=== PATIENT | male | born 1955 | race Caucasian/White ===

== ENCOUNTER 2017-03-13 09:15 | Outpatient (CLI) | payer OTHER ==
--- NOTE | 2017-03-13 10:13 | DIAGNOSTIC IMAGING REPORT ---
PROCEDURE: CT LOW-DOSE LUNG CA SCREENING CLINICAL INDICATION: LUNG CA SCREENING TECHNIQUE: Low-dose helical CT images of the lungs without contrast were obtained and reconstructed at 2.5 mm intervals. MIP reformations in coronal and sagittal planes were created. Radiation dose 1.38 mGy. COMPARISON: Oldest available comparison: None FINDINGS: NODULES: Location: Peripheral left lower lobe; image location: 97; size: 3 mm; composition: Non solid OTHER LUNG FINDINGS: Mild lingular scarring. Thickening of the minor fissure. AIRWAY: Branches normally without narrowing or endobronchial nodule. PLEURA: No effusions, thickening, or pneumothorax. AORTA AND GREAT VESSELS: Normal caliber, minor atherosclerotic calcification. Coronary atherosclerosis. PULMONARY ARTERIES: Normal. . HEART AND PERICARDIUM: Normal size without effusion, thickening. LYMPH NODES: No enlarged nodes visible. THORACIC SPINE: No suspicious lesion. Mild degenerative changes. CHEST WALL: Normal. VISUALIZED UPPER ABDOMEN: Normal. IMPRESSION: 1. 3 mm peripheral left lower lobe nodule, likely postinflammatory. 2. Category 2. Recommend annual screening with LDCT in 12 months. 3. Lingular scarring 4. Coronary atherosclerosis All CT scans at this facility use dose modulation, iterative reconstruction, and/or weight-based dosing when appropriate to reduce radiation dose to as low as reasonably achievable.
== END 2017-03-13 23:00 ==
LOC: RT SRH 09:15
DX: R91.1 Solitary pulmonary nodule (principal); R91.8 Other nonspecific abnormal finding of lung field

== ENCOUNTER 2017-04-14 01:45 | Emergency (ER) | payer OTHER ==
--- NOTE | 2017-04-14 02:58 | ED NURSING NOTES ---
Clinical Report - Nurses [facility] [address] [place] [address] 04/14/2017 1:47 Patient: SHANTELLE MANRIQUEZ TRIAGE Triage time 01:50. Acuity: LEVEL 2. Chief Complaint: SHORTNESS OF BREATH and WHEEZING. --02:02 Clarissa Valiente R.N. 01:50 04/14/17. BP: 125/79 taken on the left arm, while lying. HR: 71 (irregular and normal rate). RR: 18. O2 saturation: 94% on nasal cannula at 3 liters/minute. Temp: 97.9 F (oral). Pain level now: 0/10. --02:02 Clairssa Valiente R.N. Weight: 112.9 kg stated. Height/Length: 69 inches Per Patient. BMI: 36.8. --02:01 Clarissa Valiente R.N. Medications Albuterol Sulfate HFA Inhalation 2 puffs, as needed. --01:58 Clarissa Valiente R.N. Aspirin Oral (Tablet Chewable 81 mg) 1 tablet. --02:45 Clarissa Valiente R.N. Digoxin Oral (Tablet 250 mcg) 1 tablet, daily. --02:46 Clarissa Valiente R.N. Cartia XT Oral 120 mg, daily. --02:46 Clarissa Valiente R.N. Carvedilol Oral (Tablet 25 mg) 1 tablet, bid. --02:47 Clarissa Valiente R.N. Spironolactone Oral (Tablet 25 mg) 1 tablet, daily. --02:47 Clarissa Valiente R.N. Cozaar Oral 25 mg, daily. --02:47 Clarissa Valiente R.N. Allergies No Known Drug Allergy. --01:59 Clarissa Valiente R.N. History Arrived by EMS. Historian: patient. Unaccompanied. Primary physician (akin). This started just prior to arrival. ( pt c/o shortness of breath started around 0045 tonight, possible COPD being tested for. audible wheezing and tripoding). Treatment PROGRAM PARAPROFESSIONAL: Took breathing treatment x2. Symptoms improved after treatment. (125mg solumedrol by EMS). PAST MEDICAL HX: Immunizations: up-to-date. SOCIAL HX: Light tobacco smoker (cigarette)- less than 1/2 a pack per day. History of occasional drug use: marijuana. No alcohol use. No infectious disease exposure. ABUSE ASSESSMENT: No report of abuse. SELF HARM ASSESSMENT: A self harm assessment was performed. The patient answered "no" to the question "Have you recently felt down, depressed, or hopeless?", "Have you noticed less interest or pleasure in doing things?", "Do you have thoughts of harming or killing yourself?", "Are you here because you tried to hurt yourself?", "Have you ever tried to hurt yourself before today?", "Have you recently had thoughts about harming or killing others?" and "Do you have any dangerous items in your possession?". --02:02 Clarissa Valiente R.N. PROBLEMS: COPD - Chronic Obstructive Pulmonary Disease. --02:00 Clarissa Valiente R.N. Atrial Fibrillation. --02:00 Clarissa Valiente R.N. Hypertension. --02:48 Clarissa Valiente R.N. ADDITIONAL SURGERIES: Shoulder Surgery. --02:48 Clarissa Valiente R.N. Interventions ID band on patient. --02:02 Clarissa Valiente R.N. PHYSICAL ASSESSMENT To room via stretcher. GENERAL / NEURO / PSYCH: Alert. Oriented X 4. Appears in no acute distress. HEENT: Mucous membranes are pink. RESPIRATORY: Mild respiratory distress. Respirations not labored. The patient can speak in full sentences. Expiratory and inspiratory wheezes present; wheezes audible without auscultation. CVS: Cardiac rhythm: atrial fibrillation. Capillary refill less than 2 seconds. GI / : Abdomen soft and nontender. Bowel sounds within normal limits. SKIN: Skin is warm and dry. Normal skin turgor. --02:05 Clarissa Valiente R.N. NURSING PROGRESS NOTES 01:50 04/14/2017 Site #1 started prior to arrival by EMS via IV in the right hand with an 20g angiocath, with good blood return. --01:55 Clarissa Valiente R.N. 01:58 04/14/2017 Duoneb (Ipratropium-Albuterol) Neb TX Nebulizer 1 unit dose given. Given by the respiratory therapist. Allergies verified and confirmed 5 rights. --01:58 Barrett Qureshi, ER Catalog Library Assistant Two patient identifiers checked. Call light placed in reach. Side rails up x 2. Bed placed in lowest position. Brakes of bed on. Patient ready for evaluation- chart flagged. --02:06 Clarissa Valiente R.N. Oxygen administered by nasal cannula at 3 liters. supervisor pipeline, pulse oximeter and NIBP monitor placed on patient; employment evaluator/case manager- Lead II; monitor alarms on. Reassurance given. --02:06 Clarissa Valiente R.N. Portable chest x-ray performed. The patient is resting quietly. Overall patient status is improved- he states feels better. RESPIRATORY: Bilateral wheezes anteriorly and posteriorly; wheezes audible without auscultation (improving). SKIN: Skin is warm and dry. Skin color within normal limits. --02:25 Clarissa Valiente R.N. Two patient identifiers checked. Call light placed in reach. Side rails up x 2. Bed placed in lowest position. Brakes of bed on. --02:26 Clarissa Valiente R.N. 02:02 04/14/2017 Duoneb Neb TX discontinued due to improvement in patient condition. --02:34 Clarissa Valiente R.N. 02:15 04/14/2017 Albuterol Neb TX Nebulizer 5 mg given. Given by the respiratory therapist. Allergies verified and confirmed 5 rights. --02:24 Clarissa Valiente R.N. 02:20 04/14/2017 Albuterol Neb TX discontinued due to improvement in patient condition. --02:35 Clarissa Valiente R.N. 02:48 04/14/17. BP: 103/69 taken on the left arm, while lying. HR: 78 (regular and normal rate). RR: 18 (regular and unlabored). O2 saturation: 94% on nasal cannula at 3 liters/minute. Temp: deferred. Pain level now: 0/10. --02:49 Clarissa Valiente R.N. The patient is calm and resting quietly. Overall patient status is improved- he states feels better. RESPIRATORY: No respiratory distress. Breath sounds normal. SKIN: Skin is warm and dry. Skin color within normal limits. --02:49 Clarissa Valiente R.N. 03:00 04/14/2017 Augmentin (Amoxicillin-Pot Clavulanate) PO Tablets 875 mg given. Allergies verified and confirmed 5 rights. --03:05 Clarissa Valiente R.N. 03:00 04/14/2017 IV Saline Lock Drip IV Discontinued: upon discharge. IV patency established. IV site checked: no pain, redness, or swelling. IV flushed thoroughly. --03:05 Clarissa Valiente R.N. 03:02 04/14/2017 Site #1 removed upon discharge. Catheter intact. Manual pressure and bandage applied. --03:06 Clarissa Valiente R.N. DISPOSITION / DISCHARGE Departure time: 0302. Condition at departure: improved and stable. No learning barriers present. Discharge instructions provided and reviewed with the patient. Reviewed medication(s) side effects, precautions, dosing and course information. Prescription(s) given to the patient. Reviewed referral to a primary care physician. Patient and spouse verbalized understanding. Written instructions provided in Persian. The patient was discharged home and accompanied by spouse. He left the Emergency Department ambulatory and via private vehicle. Spouse driving. --03:08 Clarissa Valiente R.N. 03:02 04/14/17. BP: 103/91 taken on the left arm, while lying. HR: 88 (regular). RR: 18 (regular and unlabored). O2 saturation: 92% on room air. Temp: deferred. Pain level now: 0/10. --03:08 Clarissa Valiente R.N. Locked/Released at 04/14/2017 3:08 by Clarissa Valiente R.N.
--- NOTE | 2017-04-14 02:58 | ED CLINICAL REPORT ---
Clinical Report - Physicians/Mid Levels [facility] [address] [place] [address] 04/14/2017 1:47 Patient: SHANTELLE MANRIQUEZ Time Seen: 0149. Arrived- By ambulance. Historian- patient. HISTORY OF PRESENT ILLNESS Chief Complaint: WHEEZING. This started today and is still present. It was abrupt in onset and has been constant but is not gone now. The dyspnea is described as severe. He has had dyspnea at rest. The patient has had sputum production and a cough. No orthopnea or chest pain or discomfort. Asthma triggers: unknown. Takes asthma medications (inhaled albuterol), recently prescribed. (states it happened right after using his albuterol inhaler. no hemoptysis, recent surgery/trauma, prolonged immobilization). Similar symptoms previously: None. Recent medical care: Not recently seen/assessed. REVIEW OF SYSTEMS No fever, chills or skin rash. All systems otherwise negative, except as recorded above. PAST HISTORY See nurses notes. Pulmonary embolism/DVT risk factors: Has not had recent surgery, recent NV or multiple pulmonary emboli. No history of cancer, DVT or pulmonary embolism or umbrella filter. Not taking estrogens. Does not have advanced age as a risk factor or immobility as a risk factor. Is not obese. SOCIAL HISTORY Smoker- current status unknown. History of occasional drug use: marijuana. No alcohol use. No recent travel. Is a local resident. ADDITIONAL NOTES The nursing notes have been reviewed. PHYSICAL EXAM Vital Signs: 04/14/2017 01:50 BP: 125/79. HR: 71. RR: 18. O2 saturation: 94%. Temp: 97.9 F. Pain level now: 0/10. Blood pressure normal. Oxygen saturation normal. Appearance: Alert. Patient in mild distress. Eyes: Pupils equal, round and reactive to light. Eyes normal inspection. ENT: Ears normal. Nose normal. Pharynx normal. Uvula midline. Neck: Normal inspection. Neck supple. CVS: Normal heart rate and rhythm. Heart sounds normal. Pulses normal. Respiratory: Respiratory distress. Expiratory moderate bilateral wheezes diffusely. No stridor or rales. Abdomen: Soft and nontender. No organomegaly. Skin: Skin warm and dry. Normal skin color. No rash. Normal skin turgor. Extremities: Extremities exhibit normal ROM. No lower extremity edema. No calf tenderness. No lower extremity edema. Neuro: Oriented X 3. No motor deficit. No sensory deficit. LABS, X-RAYS, AND EKG EKG: No acute ischemia. Atrial fibrillation (narrow-complex) (95). Normal QRS complex. Normal axis. Normal ST and T waves, QT and QTc. rate controlled a fib. The study has been interpreted contemporaneously. The study has been independently viewed by me. Artifact present. Chest X-ray: No acute disease. Normal lung markings present. Normal heart size. Mediastinum normal. Great vessels normal. No infiltrate. Views: AP (portable). The X-rays were independently viewed by me and interpreted contemporaneously by me. Laboratory Tests: CBC w Diff: (MARCELINA: 04/14/2017 01:52) ( [facility] [place] 02:12) Final results Test Result Flag Units (Reference) WHITE BLOOD COUNT 11.6 H K/uL (4.5-11.5) RED BLOOD COUNT 5.06 M/uL (4.50-5.90) HEMOGLOBIN 14.6 gm/dL (13.5-17.5) HEMATOCRIT 44.4 % (41.0-53.0) MEAN CELL VOLUME 88 fL (80-100) MEAN CORPUSCULAR HGB 29 pg (26-34) MEAN CORPUSCULAR HGB CONC 33 g/dL (31-37) RED CELL DISTRIBUTION WIDTH 13.5 % (11.6-14.8) PLATELET COUNT 253 K/uL (150-400) NEUTROPHIL % 47.7 L % (50-75) LYMPH % 37.2 % (25-40) MONO % 9.2 % (3-14) EOSINOPHIL % 4.4 H % (0-4) BASOPHIL % 1.5 % (0-2) CMP: (MARCELINA: 04/14/2017 01:52) ( [facility] [place] 04/14/2017 02:21) Final results Test Result Flag Units (Reference) GLUCOSE 174 H mg/dL (70-110) BUN 23 H mg/dL (7-18) CREATININE 0.8 mg/dL (0.6-1.3) Estimated GFR >60 mL/min Estimated GFR- >60 mL/min Note: Persistent reduction over 3 months in eGFR<60 mL/min/1.73 m2 defines CKD. Patients with eGFR values>=60 mL/min/1.73 m2 may also have CKD if evidence ofpersistent proteinuria. Additional information may be foundat www.kidney.org. SODIUM 140 mmol/L (136-145) POTASSIUM 4.5 mmol/L (3.5-5.1) CHLORIDE 104 mmol/L (98-107) CARBON DIOXIDE 27 mmol/L (21-32) CALCIUM 9.3 mg/dL (8.5-10.1) TOTAL PROTEIN 7.3 g/dL (6.4-8.2) ALBUMIN 3.5 g/dL (3.3-5.0) BILIRUBIN, TOTAL 0.4 mg/dL (0.0-1.0) ALKALINE PHOSPHATASE 69 U/L (46-116) AST (SGOT) 12 L U/L (15-37) ALT (SGPT) 24 U/L (12-78) . PROGRESS AND PROCEDURES Course of Care: the patient is a 62-year-old male with past medical history significant for smoking presenting for evaluation of shortness of breath and wheezing. On examination, patient is in a mild amount of distress. Patient has significant wheezing on examination. Rested her therapy has been paged. Patient will be evaluated with respiratory therapy and provided breathing treatment. EKG and chest x-ray possibly ordered for evaluation patient's shortness of breath. Because the patient's wheezing on examination, feel that the symptoms are likelybecause of a COPD type exacerbation. Patient not formally diagnosed with COPD however because of long smoking history, and concerned about this entity. Would also be concerned for bronchitis and bronchospasm if the patient has not been diagnosed with COPD. Patient is agreeable to the treatment and plan. the patient's work up was a markable for the findings above. No acute abnormalities noted on patient EKG and chest x-ray. Because the patient has improved with the breathing treatments as expected from a bronchospasm type of event, did not feel symptoms are due to acute myocardial infarction or pulmonary embolism. Chest x-ray is also clear. Patient likely with bronchitis given his symptoms of cough and productive white sputum. He was given several breathing treatments in the emergency department and after each time improving significantly. When the patient first presented to the emergency department he rated his discomfort at a 10. Palpation states that he is a 0. Lungs with only intermittent wheezing on examination now. Patient offered to be monitored further in thnt states that he feels like he is well enough and would like to go home. As the patient's significant improvement of symptoms, is now a symptomatically, and now having only intermittent wheezing on exam, feel patient is a stable outpatient candidate. Had discussion with the patient in regards to his workup here in the emergency department including diagnosis, home care, follow-up, and return precautions. All questions have been answered. The patient expressed understanding of these instructions and was agreeable to them. Because the patient's likely COPD steroids and antibiotics provided to shorten the duration and severity of the patient's symptoms. Tamiflu is also not recommended because ofrisks outweighing benefits. Disposition: Discharged. Condition: good. CLINICAL IMPRESSION 04/14/2017 02:48 BP: 103/69. HR: 78. RR: 18. O2 saturation: 94%. Pain level now: 0/10. Blood pressure normal. Oxygen saturation normal. Acute bronchospasm (acute). Acute bacterial bronchitis. INSTRUCTIONS Warnings: GENERAL WARNINGS: Return or contact your physician immediately if your condition worsens or changes unexpectedly, if not improving as expected, or if other problems arise. Specifically return if pain, vomiting, bleeding, breathing difficulty or fever. Your Current Medications: CONTINUE TAKING THE FOLLOWING MEDICATIONS: Albuterol Sulfate HFA Inhalation : 2 puffs, prn. Aspirin Oral : Tablet Chewable 81 mg, 1 tablet. Cartia XT Oral : 120 mg daily. Carvedilol Oral : Tablet 25 mg, 1 tablet bid. Cozaar Oral : 25 mg daily. Digoxin Oral : Tablet 250 mcg, 1 tablet daily. Spironolactone Oral : Tablet 25 mg, 1 tablet daily. Prescription Medications: Albuterol HFA oral inhaler: inhale 1-2 puffs via spacer every 4 hours as needed for wheezing, difficulty breathing or shortness of breath. Dispense one (1) unit. No refill. Augmentin 875 mg: take 1 tablet orally every 12 hours for 10 days. No refill. Substitution is permissible. (disp 20 tabs) Prednisone 50 mg: take 1 orally every day for 5 days. Dispense five (5). No refills. Follow-up: Return to the emergency department as needed. Follow up with your doctor in three days. Reason for referral: recheck today's concerns. Summary of care provided to patient via paper. Screening today revealed the patient's blood pressure to be in the normal range. The patient should follow up with a primary care provider for blood pressure management. Understanding of the discharge instructions verbalized by patient. (Electronically signed by Ac Adair Dr. 04/15/2017 17:31)
--- NOTE | 2017-04-14 02:58 | ED ORDER SUMMARY ---
..... Patient: SHANTELLE MANRIQUEZ OrderSheet [facility] VisitID: [id number] [place] [address] 62y, M Registration Date/Time: 04/14/2017 ORDER SHEET Weight: 112.9 kg (stated) Allergies: No Known Drug Allergy GENERAL ORDERS: EKG - ER Stat (01:54 04/14/2017 Cesilia R.NHema per protocol) (1:58 [facility] ER Customer Acquisition Manager) Chest 1V Urgent (02:04/14/2017 Diamante Martinez) (Ack 2:07 [facility]ague ER Customer Acquisition Manager) (2:24 Cesilia R.N.) Medical Laboratory Technical Officer (Continuous) (Respiratory Distress) (02:04/14/2017 Diamante Martinez) (2:06 Cesilia R.N.) CBC w Diff Urgent (02:04/14/2017 Diamante Martinez) (2:06 Cesilia R.N.) CMP Urgent (02:04/14/2017 Diamante Martinez) (2:06 Cesilia R.N.) Pulse oximeter (02:04/14/2017 Diamante Martinez) (2:06 Cesilia R.N.) MEDICATION ORDERS: DuoNeb Neb Tx 1 unit dose (NOW) (01:04/14/2017 Cesilia R.NHema per protocol) (1:58 [facility] ER Customer Acquisition Manager) DuoNeb Neb Tx 1 unit dose (back log for just after arrival) (02:04/14/2017 Diamante Martinez) (Cancelled: Duplicate Order2:34 Cesilia R.N.) Albuterol Neb Tx 5 mg (once now) (02:05 04/14/2017 Diamante Martinez) (2:24 Cesilia R.N.) Augmentin PO 875 mg (NOW) (02:54 04/14/2017 Diamante Martinez) (Ack 2:56 Cesilia R.N.) (3:05 Cesilia R.N.) IV FLUIDS: Solu-MEDROL IV 125 mg (NOW) (02:05 04/14/2017 Diamante Martinez) (Cancelled: Duplicate Order2:17 Diamante Martinez) IV Saline Lock (02:06 04/14/2017 Diamante Martinez) (2:07 Cesilia Gallo) ORDER SHEET NOTES: [Electronically signed by Clarissa Valiente R.N. (03:08 04/14/2017)] [Electronically signed by Ac Adair Dr. (17:31 04/15/2017)] [Electronically locked/signed by Clarissa Valiente R.N. (03:08 04/14/2017)]
--- NOTE | 2017-04-14 02:58 | ED NURSING NOTES ---
Clinical Report - Nurses [facility] [address] [place] [address] 04/14/2017 1:47 Patient: SHANTELLE MANRIQUEZ TRIAGE Triage time 01:50. Acuity: LEVEL 2. Chief Complaint: SHORTNESS OF BREATH and WHEEZING. --02:02 Clarissa Valiente R.N. 01:50 04/14/17. BP: 125/79 taken on the left arm, while lying. HR: 71 (irregular and normal rate). RR: 18. O2 saturation: 94% on nasal cannula at 3 liters/minute. Temp: 97.9 F (oral). Pain level now: 0/10. --02:02 Clarissa Valiente R.N. Weight: 112.9 kg stated. Height/Length: 69 inches Per Patient. BMI: 36.8. --02:01 Clarissa Valiente R.N. Medications Albuterol Sulfate HFA Inhalation 2 puffs, as needed. --01:58 Clarissa Valiente R.N. Aspirin Oral (Tablet Chewable 81 mg) 1 tablet. --02:45 Clarissa Valiente R.N. Digoxin Oral (Tablet 250 mcg) 1 tablet, daily. --02:46 Clarissa Valiente R.N. Cartia XT Oral 120 mg, daily. --02:46 Clarissa Valiente R.N. Carvedilol Oral (Tablet 25 mg) 1 tablet, bid. --02:47 Clarissa Valiente R.N. Spironolactone Oral (Tablet 25 mg) 1 tablet, daily. --02:47 Clarissa Valiente R.N. Cozaar Oral 25 mg, daily. --02:47 Clarissa Valiente R.N. Allergies No Known Drug Allergy. --01:59 Clarissa Valiente R.N. History Arrived by EMS. Historian: patient. Unaccompanied. Primary physician ([facility]). This started just prior to arrival. ( pt c/o shortness of breath started around 0045 tonight, possible COPD being tested for. audible wheezing and tripoding). 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 Symptoms improved after treatment. (125mg solumedrol by EMS). PAST MEDICAL HX: Immunizations: up-to-date. SOCIAL HX: Light tobacco smoker (cigarette)- less than 1/2 a pack per day. History of occasional drug use: marijuana. No alcohol use. No infectious disease exposure. ABUSE ASSESSMENT: No report of abuse. SELF HARM ASSESSMENT: A self harm assessment was performed. The patient answered "no" to the question "Have you recently felt down, depressed, or hopeless?", "Have you noticed less interest or pleasure in doing things?", "Do you have thoughts of harming or killing yourself?", "Are you here because you tried to hurt yourself?", "Have you ever tried to hurt yourself before today?", "Have you recently had thoughts about harming or killing others?" and "Do you have any dangerous items in your possession?". --02:02 Clarissa Valiente R.N. PROBLEMS: COPD - Chronic Obstructive Pulmonary Disease. --02:00 Clarissa Valiente R.N. Atrial Fibrillation. --02:00 Clarissa Valiente R.N. Hypertension. --02:48 Clarissa Valiente R.N. ADDITIONAL SURGERIES: Shoulder Surgery. --02:48 Clarissa Valiente R.N. Interventions ID band on patient. --02:02 Clarissa Valiente R.N. PHYSICAL ASSESSMENT To room via stretcher. GENERAL / NEURO / PSYCH: Alert. Oriented X 4. Appears in no acute distress. HEENT: Mucous membranes are pink. RESPIRATORY: Mild respiratory distress. Respirations not labored. The patient can speak in full sentences. Expiratory and inspiratory wheezes present; wheezes audible without auscultation. CVS: Cardiac rhythm: atrial fibrillation. Capillary refill less than 2 seconds. GI / : Abdomen soft and nontender. Bowel sounds within normal limits. SKIN: Skin is warm and dry. Normal skin turgor. --02:05 Clarissa Valiente R.N. NURSING PROGRESS NOTES 01:50 04/14/2017 Site #1 started prior to arrival by EMS via IV in the right hand with an 20g angiocath, with good blood return. --01:55 Clarissa Valiente R.N. 01:58 04/14/2017 Duoneb (Ipratropium-Albuterol) Neb TX Nebulizer 1 unit dose given. Given by the respiratory therapist. Allergies verified and confirmed 5 rights. --01:58 Barrett Qureshi, ER Mirror Installer Two patient identifiers checked. Call light placed in reach. Side rails up x 2. Bed placed in lowest position. Brakes of bed on. Patient ready for evaluation- chart flagged. --02:06 Clarissa Valiente R.N. Oxygen administered by nasal cannula at 3 liters. satellite project site monitor, pulse oximeter and NIBP monitor placed on patient; monitoring engineer- Lead II; monitor alarms on. Reassurance given. --02:06 Clarissa Valiente R.N. Portable chest x-ray performed. The patient is resting quietly. Overall patient status is improved- he states feels better. RESPIRATORY: Bilateral wheezes anteriorly and posteriorly; wheezes audible without auscultation (improving). SKIN: Skin is warm and dry. Skin color within normal limits. --02:25 Clarissa Valiente R.N. Two patient identifiers checked. Call light placed in reach. Side rails up x 2. Bed placed in lowest position. Brakes of bed on. --02:26 Clarissa Valiente R.N. 02:02 04/14/2017 Duoneb Neb TX discontinued due to improvement in patient condition. --02:34 Clarissa Valiente R.N. 02:15 04/14/2017 Albuterol Neb TX Nebulizer 5 mg given. Given by the respiratory therapist. Allergies verified and confirmed 5 rights. --02:24 Clarissa Valiente R.N. 02:20 04/14/2017 Albuterol Neb TX discontinued due to improvement in patient condition. --02:35 Clarissa Valiente R.N. 02:48 04/14/17. BP: 103/69 taken on the left arm, while lying. HR: 78 (regular and normal rate). RR: 18 (regular and unlabored). O2 saturation: 94% on nasal cannula at 3 liters/minute. Temp: deferred. Pain level now: 0/10. --02:49 Clarissa Valiente R.N. The patient is calm and resting quietly. Overall patient status is improved- he states feels better. RESPIRATORY: No respiratory distress. Breath sounds normal. SKIN: Skin is warm and dry. Skin color within normal limits. --02:49 Clarissa Valiente R.N. 03:00 04/14/2017 Augmentin (Amoxicillin-Pot Clavulanate) PO Tablets 875 mg given. Allergies verified and confirmed 5 rights. --03:05 Clarissa Valiente R.N. 03:00 04/14/2017 IV Saline Lock Drip IV Discontinued: upon discharge. IV patency established. IV site checked: no pain, redness, or swelling. IV flushed thoroughly. --03:05 Clarissa Valiente R.N. 03:02 04/14/2017 Site #1 removed upon discharge. Catheter intact. Manual pressure and bandage applied. --03:06 Clarissa Valiente R.N. DISPOSITION / DISCHARGE Departure time: 0302. Condition at departure: improved and stable. No learning barriers present. Discharge instructions provided and reviewed with the patient. Reviewed medication(s) side effects, precautions, dosing and course information. Prescription(s) given to the patient. Reviewed referral to a primary care physician. Patient and spouse verbalized understanding. Written instructions provided in Hebrew. The patient was discharged home and accompanied by spouse. He left the Emergency Department ambulatory and via private vehicle. Spouse driving. --03:08 Clarissa Valiente R.N. 03:02 04/14/17. BP: 103/91 taken on the left arm, while lying. HR: 88 (regular). RR: 18 (regular and unlabored). O2 saturation: 92% on room air. Temp: deferred. Pain level now: 0/10. --03:08 Clarissa Valiente R.N. Locked/Released at 04/14/2017 3:08 by Clarissa Valiente R.N.
--- NOTE | 2017-04-14 02:58 | ED ORDER SUMMARY ---
..... Patient: SHANTELLE MANRIQUEZ OrderSheet [facility] VisitID: [id number] [place] [address] 62y, M Registration Date/Time: 04/14/2017 ORDER SHEET Weight: 112.9 kg (stated) Allergies: No Known Drug Allergy GENERAL ORDERS: EKG - ER Stat (01:54 04/14/2017 Cesilia R.NHema per protocol) (1:58 Mague ER Fish Hatchery Assistant) Chest 1V Urgent (02:04/14/2017 Diamante Martinez) (Ack 2:07 Mague ER Fish Hatchery Assistant) (2:24 Cesilia R.N.) Portable Irrigation Operator (Continuous) (Respiratory Distress) (02:04/14/2017 Diamante Martinez) (2:06 Cesilia R.N.) CBC w Diff Urgent (02:04/14/2017 Diamante Martinez) (2:06 Cesilia R.N.) CMP Urgent (02:04/14/2017 Diamante Martinez) (2:06 Cesilia R.N.) Pulse oximeter (02:04/14/2017 Diamante Martinez) (2:06 Cesilia R.N.) MEDICATION ORDERS: DuoNeb Neb Tx 1 unit dose (NOW) (01:04/14/2017 Cesilia R.NHema per protocol) (1:58 Mague ER Fish Hatchery Assistant) DuoNeb Neb Tx 1 unit dose (back log for just after arrival) (02:04/14/2017 Diamante Martinez) (Cancelled: Duplicate Order2:34 Cesilia R.N.) Albuterol Neb Tx 5 mg (once now) (02:05 04/14/2017 Diamante Martinez) (2:24 Cesilia R.N.) Augmentin PO 875 mg (NOW) (02:54 04/14/2017 Diamante Martinez) (Ack 2:56 Cesilia R.N.) (3:05 Cesilia R.N.) IV FLUIDS: Solu-MEDROL IV 125 mg (NOW) (02:05 04/14/2017 Diamante Martinez) (Cancelled: Duplicate Order2:17 Diamante Martinez) IV Saline Lock (02:06 04/14/2017 Diamante Martinez) (2:07 Cesilia Gallo) ORDER SHEET NOTES: [Electronically signed by Clarissa Valiente R.N. (03:08 04/14/2017)] [Electronically signed by Ac [address]air Dr. (17:31 04/15/2017)] [Electronically locked/signed by Clarissa Valiente R.N. (03:08 04/14/2017)]
--- NOTE | 2017-04-14 07:48 | DIAGNOSTIC IMAGING REPORT ---
PROCEDURE: XR CHEST 1 VIEW INDICATION: COUGH, WHEEZING TECHNIQUE: Single view chest. 02:29 hours COMPARISON: Low-dose chest CT 03/13/2017 FINDINGS: Heart size within normal limits. There is rightward shift of the trachea secondary to 3.8 cm superior mediastinal mass, probably left thyroid goiter. No central venous congestion. The aortic shadow is normal. Lungs are mildly hyperinflated and hyperlucent with slight scarring laterally at the left mid lung. A small hazy alveolar opacity at the right lung base. No effusion or pneumothorax. Intact osseous structures. IMPRESSION: 1. Questionable small right lung base alveolar opacity, potentially infectious or atelectatic change. Correlate clinically. 2. Background of COPD. 3. Rightward tracheal shift secondary to a 3.8 cm mass, likely thyroid, but incompletely evaluated on prior CT. Routine CT with contrast when the patient is able is recommended for full evaluation.
--- NOTE | 2017-04-15 17:31 | ED MED RECONCILIATION SUMMARY ---
Patient: SHANTELLE MANRIQUEZ Medication Reconciliation Report [facility] VisitID: [id number] [address] [place] [address] 62y, M Registration Date/Time: 04/14/2017 Weight: 112.9 kg Height/Length: 69 in. BMI: 36.8 ALLERGIES: No Known Drug Allergy The patient's Home Medications are listed below: CONTINUE TAKING THE FOLLOWING MEDICATIONS: Albuterol Sulfate HFA Inhalation 2 puffs Aspirin Oral (81 mg) 1 tablet Cartia XT Oral 120 mg, daily Carvedilol Oral (25 mg) 1 tablet, bid Cozaar Oral 25 mg, daily Digoxin Oral (250 mcg) 1 tablet, daily Spironolactone Oral (25 mg) 1 tablet, daily The source(s) of the original Home Medication information: Not obtained. The following Medications were given to the patient in the Emergency Department: Duoneb [Neb Tx] Neb TX 1 unit dose, administered: 04/14/2017 1:58:00 AM Albuterol [Neb Tx] Neb TX 5 mg, administered: 04/14/2017 2:15:00 AM Augmentin [PO] PO 875 mg, administered: 04/14/2017 3:00:00 AM The following Medications were prescribed to the patient: Albuterol HFA oral inhaler: inhale 1-2 puffs via spacer every 4 hours as needed for wheezing, difficulty breathing or shortness of breath. Dispense one (1) unit. No refill. -- Ac [address] Dr. Augmentin 875 mg: take 1 tablet orally every 12 hours for 10 days. No refill. Substitution is permissible.(disp 20 tabs) -- Ac [address] Dr. Prednisone 50 mg: take 1 orally every day for 5 days. Dispense five (5). No refills. -- Ac [address] Dr.
--- NOTE | 2017-04-15 17:31 | ED MED RECONCILIATION SUMMARY ---
Patient: SHANTELLE MANRIQUEZ Medication Reconciliation Report [facility] VisitID: [id number] [address] [place] [address] 62y, M Registration Date/Time: 04/14/2017 Weight: 112.9 kg Height/Length: 69 in. BMI: 36.8 ALLERGIES: No Known Drug Allergy The patient's Home Medications are listed below: CONTINUE TAKING THE FOLLOWING MEDICATIONS: Albuterol Sulfate HFA Inhalation 2 puffs Aspirin Oral (81 mg) 1 tablet Cartia XT Oral 120 mg, daily Carvedilol Oral (25 mg) 1 tablet, bid Cozaar Oral 25 mg, daily Digoxin Oral (250 mcg) 1 tablet, daily Spironolactone Oral (25 mg) 1 tablet, daily The source(s) of the original Home Medication information: Not obtained. The following Medications were given to the patient in the Emergency Department: Duoneb [Neb Tx] Neb TX 1 unit dose, administered: 04/14/2017 1:58:00 AM Albuterol [Neb Tx] Neb TX 5 mg, administered: 04/14/2017 2:15:00 AM Augmentin [PO] PO 875 mg, administered: 04/14/2017 3:00:00 AM The following Medications were prescribed to the patient: Albuterol HFA oral inhaler: inhale 1-2 puffs via spacer every 4 hours as needed for wheezing, difficulty breathing or shortness of breath. Dispense one (1) unit. No refill. -- Ac [address] Dr. Augmentin 875 mg: take 1 tablet orally every 12 hours for 10 days. No refill. Substitution is permissible.(disp 20 tabs) -- Ac [address] Dr. Prednisone 50 mg: take 1 orally every day for 5 days. Dispense five (5). No refills. -- Ac [address] Dr.
--- NOTE | 2017-04-15 17:31 | ED MAR SUMMARY ---
..... Medication Administration Record [facility] [address] [place] [address] Patient: SHANTELLE MANRIQUEZ Visit ID: [id number] 62y, M Weight: 112.9 kg Height/Length: 69 in BMI: 36.8 ALLERGIES: No Known Drug Allergy Given 01:58 04/14/2017 Barrett Qureshi, ALEJANDRO Portable Machine Sander, Stop 02:02 04/14/2017 Clarissa Valiente R.N. Medication Administered: DUONEB [NEB TX] (IPRATROPIUM-ALBUTEROL), Dose: 1 unit dose Nebulizer Neb TX. Medication Ordered: DuoNeb Neb Tx 1 unit dose (NOW). Given 02:15 04/14/2017 Clarissa Valiente R.N., Stop 02:20 04/14/2017 Clarissa Valiente R.N. Medication Administered: ALBUTEROL [NEB TX], Dose: 5 mg Nebulizer Neb TX. Medication Ordered: Albuterol Neb Tx 5 mg (once now). Given 03:00 04/14/2017 Clarissa Valiente R.N. Medication Administered: AUGMENTIN [PO] (AMOXICILLIN-POT CLAVULANATE), Dose: 875 mg Tablets PO. Medication Ordered: Augmentin PO 875 mg (NOW).
--- NOTE | 2017-04-15 17:31 | ED DISCHARGE INSTRUCTIONS ---
Patient: SHANTELLE MANRIQUEZ General Instructions [facility] VisitID: [id number] [address] [place] [address] 62y, M Registration Date/Time: 04/14/2017 04/14/2017 02:48 BP: 103/69. HR: 78. RR: 18. O2 saturation: 94%. Pain level now: 0/10. Blood pressure normal. Oxygen saturation normal. Acute bronchospasm (acute). Acute bacterial bronchitis. INSTRUCTIONS Warnings: GENERAL WARNINGS: Return or contact your physician immediately if your condition worsens or changes unexpectedly, if not improving as expected, or if other problems arise. Specifically return if pain, vomiting, bleeding, breathing difficulty or fever. Your Current Medications: CONTINUE TAKING THE FOLLOWING MEDICATIONS: Albuterol Sulfate HFA Inhalation : 2 puffs, prn. Aspirin Oral : Tablet Chewable 81 mg, 1 tablet. Cartia XT Oral : 120 mg daily. Carvedilol Oral : Tablet 25 mg, 1 tablet bid. Cozaar Oral : 25 mg daily. Digoxin Oral : Tablet 250 mcg, 1 tablet daily. Spironolactone Oral : Tablet 25 mg, 1 tablet daily. Prescription Medications: Albuterol HFA oral inhaler: inhale 1-2 puffs via spacer every 4 hours as needed for wheezing, difficulty breathing or shortness of breath. Dispense one (1) unit. No refill. Augmentin 875 mg: take 1 tablet orally every 12 hours for 10 days. No refill. Substitution is permissible. (disp 20 tabs) Prednisone 50 mg: take 1 orally every day for 5 days. Dispense five (5). No refills. Follow-up: Return to the emergency department as needed. Follow up with your doctor in three days. Reason for referral: recheck today's concerns. Summary of care provided to patient via paper. Screening today revealed the patient's blood pressure to be in the normal range. The patient should follow up with a primary care provider for blood pressure management. Understanding of the discharge instructions verbalized by patient. ADDITIONAL INFORMATION Bronchospasm (Adult) Bronchospasm occurs when the airways (bronchial tubes) go into spasm and contract. This makes it hard to breathe and causes wheezing (a high-pitched whistling sound). Bronchospasm can also cause frequent coughing without the wheezing sound. Bronchospasm is due to irritation, inflammation or allergic reaction of the airways. People with asthma get bronchospasm. However, not everyone with bronchospasm has asthma. Being exposed to harmful fumes, a recent case of bronchitis, or a flare-up of chronic emphysema (COPD) may cause the airways to spasm. An episode of bronchospasm may last 7-14 days. Medicine may be prescribed to relax the airways and prevent wheezing. Antibiotics will be prescribed only if your doctor thinks there is a bacterial infection. Antibiotics do not help a viral infection. Home Care: Drink lots of water or other fluids (at least 10 glasses a day) during an attack. This will loosen lung secretions and make it easier to breathe. If you have heart or kidney disease, check with your doctor before you drink extra amounts of fluids. Take prescribed medicine exactly at the times advised. If you have a hand-held inhaler or aerosol breathing medicine, do not use it more than once every four hours, unless told to do so. If prescribed an antibiotic or prednisone, take all of the medicine even if you are feeling better after a few days. Do not smoke. Avoid being exposed to the smoke of others. If you were given an inhaler, use it exactly as directed. If you need to use it more often than prescribed, your condition may be getting worse. Contact your doctor or this facility. Follow Up With Your Doctor, Or As Directed. [ NOTE: If you are age 65 or older, or if you have chronic asthma or COPD, we recommend a PNEUMOCOCCAL VACCINATION every five years and a yearly INFLUENZA VACCINATION (FLU-SHOT) every . Ask your doctor about this.] Get Prompt Medical Attention If Any Of The Following Occur: Increased wheezing or shortness of breath Need to use your inhalers more often than usual without relief Fever of 100.4F (38C) or higher, or as directed by your healthcare provider Coughing up lots of dark-colored or bloody sputum (mucus) Chest pain with each breath You do not start to improve within 24 hours Bronchitis (Adult: Abx Tx) BRONCHITIS is an infection of the air passages (bronchial tubes). It often occurs during the common cold. Symptoms include cough with mucus (phlegm) and low-grade fever. Bronchitis usually lasts 7-14 days. Mild cases can be treated with simple home remedies. More severe infection is treated with an antibiotic. Home Care: If symptoms are severe, rest at home for the first 2-3 days. When you resume activity, don't let yourself get too tired. Do not smoke. Avoid being exposed to the smoke of others. You may use acetaminophen (Tylenol) or ibuprofen (Motrin, Advil) to control fever or pain, unless another medicine was prescribed for this. [NOTE: If you have chronic liver or kidney disease or ever had a stomach ulcer or GI bleeding, talk with your doctor before using these medicines.] Your appetite may be poor, so a light diet is fine. Avoid dehydration by drinking 6-8 glasses of fluids per day (water, soft, drinks, juices, tea, soup, etc.). Extra fluids will help loosen secretions in the lungs. [id number] cough medicines that containdextromethorphan(such as Robitussin DM) and decongestants (Actifed or Sudafed) may help relieve cough and congestion. [NOTE: Do not use decongestants if you have high blood pressure.] Finish all antibiotic medicine, even if you are feeling better after only a few days. Follow Up with your doctor or as directed if you dont start to feel better after three days. [NOTE: If you are age 65 or older, or if you have chronic asthma or COPD, we recommend a PNEUMOCOCCAL VACCINATION every five years and a yearly INFLUENZAVACCINATION (FLU-SHOT) every . Ask your doctor about this. If you had an X-ray, a radiologist will review it. You will be notified of any new findings that may affect your care.] Get Prompt Medical Attention if any of the following occur: Fever over 100.4F (38.0C) for more than three days Trouble breathing, wheezing or pain with breathing Coughing up blood or increased amounts of colored sputum Weakness, drowsiness, headache, facial pain, ear pain or a stiff neck Albuterol Sulfate Pressurized inhalation, suspension What is this medicine? ALBUTEROL (al BYOO ter ole) is a bronchodilator. It helps open up the airways in your lungs to make it easier to breathe. This medicine is used to treat and to prevent bronchospasm. How should I use this medicine? This medicine is for inhalation through the mouth. Follow the directions on your prescription label. Take your medicine at regular intervals. Do not use more often than directed. Make sure that you are using your inhaler correctly. Ask you doctor or health care provider if you have any questions. Talk to your web marketing assistant regarding the use of this medicine in children. Special care may be needed. What side effects may I notice from receiving this medicine? Side effects that you should report to your doctor or health healthcare interpreter as soon as possible: allergic reactions like skin rash, itching or hives, swelling of the face, lips, or tongue breathing problems chest pain feeling faint or lightheaded, falls high blood pressure irregular heartbeat fever muscle cramps or weakness pain, tingling, numbness in the hands or feet vomiting Side effects that usually do not require medical attention (report to your doctor or health healthcare interpreter if they continue or are bothersome): cough difficulty sleeping headache nervousness or trembling stomach upset stuffy or runny nose throat irritation unusual taste What may interact with this medicine? anti-infectives like chloroquine and pentamidine caffeine cisapride diuretics medicines for colds medicines for depression or for emotional or psychotic conditions medicines for weight loss including some herbal products methadone some antibiotics like clarithromycin, erythromycin, levofloxacin, and linezolid some heart medicines steroid hormones like dexamethasone, cortisone, hydrocortisone theophylline thyroid hormones What if I miss a dose? If you miss a dose, use it as soon as you can. If it is almost time for your next dose, use only that dose. Do not use double or extra doses. Where should I keep my medicine? Keep out of the reach of children. Store at room temperature between 15 and 30 degrees C (59 and 86 degrees F). The contents are under pressure and may burst when exposed to heat or flame. Do not freeze. This medicine does not work as well if it is too cold. Throw away any unused medicine after the expiration date. Inhalers need to be thrown away after the labeled number of puffs have been used or by the expiration date; whichever comes first. Ventolin HFA should be thrown away 12 months after removing from foil pouch. Check the instructions that come with your medicine. What should I tell my health care provider before I take this medicine? They need to know if you have any of the following conditions: diabetes heart disease or irregular heartbeat high blood pressure pheochromocytoma seizures thyroid disease an unusual or allergic reaction to albuterol, levalbuterol, sulfites, other medicines, foods, dyes, or preservatives or trying to get breast-feeding What should I watch for while using this medicine? Tell your doctor or health healthcare interpreter if your symptoms do not improve. Do not use extra albuterol. If your asthma or bronchitis gets worse while you are using this medicine, call your doctor right away. If your mouth gets dry try chewing sugarless gum or sucking hard candy. Drink water as directed. Amoxicillin Trihydrate, Clavulanate Potassium Oral tablet What is this medicine? AMOXICILLIN; CLAVULANIC ACID (a mox i SHRUTHI in; CHANELLE black ic id) is a penicillin antibiotic. It is used to treat certain kinds of bacterial infections. It will not work for colds, flu, or other viral infections. How should I use this medicine? Take this medicine by mouth with a full glass of water. Follow the directions on the prescription label. Take at the start of a meal. Do not crush or chew. If the tablet has a score line, you may cut it in half at the score line for easier swallowing. Take your medicine at regular intervals. Do not take your medicine more often than directed. Take all of your medicine as directed even if you think you are better. Do not skip doses or stop your medicine early. Talk to your web marketing assistant regarding the use of this medicine in children. Special care may be needed. What side effects may I notice from receiving this medicine? Side effects that you should report to your doctor or health healthcare interpreter as soon as possible: allergic reactions like skin rash, itching or hives, swelling of the face, lips, or tongue breathing problems dark urine fever or chills, sore throat redness, blistering, peeling or loosening of the skin, including inside the mouth seizures trouble passing urine or change in the amount of urine unusual bleeding, bruising unusually weak or tired white patches or sores in the mouth or throat Side effects that usually do not require medical attention (report to your doctor or health healthcare interpreter if they continue or are bothersome): diarrhea dizziness headache nausea, vomiting stomach upset vaginal or anal irritation What may interact with this medicine? allopurinol anticoagulants control pills methotrexate probenecid What if I miss a dose? If you miss a dose, take it as soon as you can. If it is almost time for your next dose, take only that dose. Do not take double or extra doses. Where should I keep my medicine? Keep out of the reach of children. Store at room temperature below 25 degrees C (77 degrees F). Keep container tightly closed. Throw away any unused medicine after the expiration date. What should I tell my health care provider before I take this medicine? They need to know if you have any of these conditions: bowel disease, like colitis kidney disease liver disease mononucleosis an unusual or allergic reaction to amoxicillin, penicillin, cephalosporin, other antibiotics, clavulanic acid, other medicines, foods, dyes, or preservatives or trying to get breast-feeding What should I watch for while using this medicine? Tell your doctor or health healthcare interpreter if your symptoms do not improve. Do not treat diarrhea with over the counter products. Contact your doctor if you have diarrhea that lasts more than 2 days or if it is severe and watery. If you have diabetes, you may get a false-positive result for sugar in your urine. Check with your doctor or health healthcare interpreter. control pills may not work properly while you are taking this medicine. Talk to your doctor about using an extra method of control. Prednisone Oral tablet What is this medicine? PREDNISONE (PRED ni sone) is a corticosteroid. It is commonly used to treat inflammation of the skin, joints, lungs, and other organs. Common conditions treated include asthma, allergies, and arthritis. It is also used for other conditions, such as blood disorders and diseases of the adrenal glands. How should I use this medicine? Take this medicine by mouth with a glass of water. Follow the directions on the prescription label. Take this medicine with food. If you are taking this medicine once a day, take it in the morning. Do not take more medicine than you are told to take. Do not suddenly stop taking your medicine because you may develop a severe reaction. Your doctor will tell you how much medicine to take. If your doctor wants you to stop the medicine, the dose may be slowly lowered over time to avoid any side effects. Talk to your web marketing assistant regarding the use of this medicine in children. Special care may be needed. What side effects may I notice from receiving this medicine? Side effects that you should report to your doctor or health healthcare interpreter as soon as possible: allergic reactions like skin rash, itching or hives, swelling of the face, lips, or tongue changes in emotions or moods changes in vision depressed mood eye pain fever or chills, cough, sore throat, pain or difficulty passing urine increased thirst swelling of ankles, feet Side effects that usually do not require medical attention (report to your doctor or health healthcare interpreter if they continue or are bothersome): confusion, excitement, restlessness headache nausea, vomiting skin problems, acne, thin and shiny skin trouble sleeping weight gain What may interact with this medicine? Do not take this medicine with any of the following medications: metyrapone mifepristone This medicine may also interact with the following medications: aminoglutethimide amphotericin B aspirin and aspirin-like medicines barbiturates certain medicines for diabetes, like glipizide or glyburide cholestyramine cholinesterase inhibitors cyclosporine digoxin diuretics ephedrine female hormones, like estrogens and control pills isoniazid ketoconazole NSAIDS, medicines for pain and inflammation, like ibuprofen or naproxen phenytoin rifampin toxoids vaccines warfarin What if I miss a dose? If you miss a dose, take it as soon as you can. If it is almost time for your next dose, talk to your doctor or health healthcare interpreter. You may need to miss a dose or take an extra dose. Do not take double or extra doses without advice. Where should I keep my medicine? Keep out of the reach of children. Store at room temperature between 15 and 30 degrees C (59 and 86 degrees F). Protect from light. Keep container tightly closed. Throw away any unused medicine after the expiration date. What should I tell my health care provider before I take this medicine? They need to know if you have any of these conditions: Jacqueline's syndrome diabetes glaucoma heart disease high blood pressure infection (especially a virus infection such as chickenpox, cold sores, or herpes) kidney disease liver disease mental illness myasthenia gravis osteoporosis seizures stomach or intestine problems thyroid disease an unusual or allergic reaction to lactose, prednisone, other medicines, foods, dyes, or preservatives or trying to get breast-feeding What should I watch for while using this medicine? Visit your doctor or health healthcare interpreter for regular checks on your progress. If you are taking this medicine over a prolonged period, carry an identification card with your name and address, the type and dose of your medicine, and your doctor's name and address. This medicine may increase your risk of getting an infection. Tell your doctor or health healthcare interpreter if you are around anyone with measles or chickenpox, or if you develop sores or blisters that do not heal properly. If you are going to have surgery, tell your doctor or health healthcare interpreter that you have taken this medicine within the last twelve months. Ask your doctor or health healthcare interpreter about your diet. You may need to lower the amount of salt you eat. This medicine may affect blood sugar levels. If you have diabetes, check with your doctor or health healthcare interpreter before you change your diet or the dose of your diabetic medicine. You have been given the following additional information: Bronchospasm (Adult) Bronchitis, Antiobiotic Treatment (Adult) Albuterol Sulfate Pressurized inhalation, suspension Amoxicillin Trihydrate, Clavulanate Potassium Oral tablet Prednisone Oral tablet (Electronically signed by Ac Adair Dr. 04/15/2017 17:31)
--- NOTE | 2017-04-15 17:31 | ED DISCHARGE INSTRUCTIONS ---
Patient: SHANTELLE MANRIQUEZ General Instructions [facility] VisitID: [id number] [address] [place] [address] 62y, M Registration Date/Time: 04/14/2017 04/14/2017 02:48 BP: 103/69. HR: 78. RR: 18. O2 saturation: 94%. Pain level now: 0/10. Blood pressure normal. Oxygen saturation normal. Acute bronchospasm (acute). Acute bacterial bronchitis. INSTRUCTIONS Warnings: GENERAL WARNINGS: Return or contact your physician immediately if your condition worsens or changes unexpectedly, if not improving as expected, or if other problems arise. Specifically return if pain, vomiting, bleeding, breathing difficulty or fever. Your Current Medications: CONTINUE TAKING THE FOLLOWING MEDICATIONS: Albuterol Sulfate HFA Inhalation : 2 puffs, prn. Aspirin Oral : Tablet Chewable 81 mg, 1 tablet. Cartia XT Oral : 120 mg daily. Carvedilol Oral : Tablet 25 mg, 1 tablet bid. Cozaar Oral : 25 mg daily. Digoxin Oral : Tablet 250 mcg, 1 tablet daily. Spironolactone Oral : Tablet 25 mg, 1 tablet daily. Prescription Medications: Albuterol HFA oral inhaler: inhale 1-2 puffs via spacer every 4 hours as needed for wheezing, difficulty breathing or shortness of breath. Dispense one (1) unit. No refill. Augmentin 875 mg: take 1 tablet orally every 12 hours for 10 days. No refill. Substitution is permissible. (disp 20 tabs) Prednisone 50 mg: take 1 orally every day for 5 days. Dispense five (5). No refills. Follow-up: Return to the emergency department as needed. Follow up with your doctor in three days. Reason for referral: recheck today's concerns. Summary of care provided to patient via paper. Screening today revealed the patient's blood pressure to be in the normal range. The patient should follow up with a primary care provider for blood pressure management. Understanding of the discharge instructions verbalized by patient. ADDITIONAL INFORMATION Bronchospasm (Adult) Bronchospasm occurs when the airways (bronchial tubes) go into spasm and contract. This makes it hard to breathe and causes wheezing (a high-pitched whistling sound). Bronchospasm can also cause frequent coughing without the wheezing sound. Bronchospasm is due to irritation, inflammation or allergic reaction of the airways. People with asthma get bronchospasm. However, not everyone with bronchospasm has asthma. Being exposed to harmful fumes, a recent case of bronchitis, or a flare-up of chronic emphysema (COPD) may cause the airways to spasm. An episode of bronchospasm may last 7-14 days. Medicine may be prescribed to relax the airways and prevent wheezing. Antibiotics will be prescribed only if your doctor thinks there is a bacterial infection. Antibiotics do not help a viral infection. Home Care: Drink lots of water or other fluids (at least 10 glasses a day) during an attack. This will loosen lung secretions and make it easier to breathe. If you have heart or kidney disease, check with your doctor before you drink extra amounts of fluids. Take prescribed medicine exactly at the times advised. If you have a hand-held inhaler or aerosol breathing medicine, do not use it more than once every four hours, unless told to do so. If prescribed an antibiotic or prednisone, take all of the medicine even if you are feeling better after a few days. Do not smoke. Avoid being exposed to the smoke of others. If you were given an inhaler, use it exactly as directed. If you need to use it more often than prescribed, your condition may be getting worse. Contact your doctor or this facility. Follow Up With Your Doctor, Or As Directed. [ NOTE: If you are age 65 or older, or if you have chronic asthma or COPD, we recommend a PNEUMOCOCCAL VACCINATION every five years and a yearly INFLUENZA VACCINATION (FLU-SHOT) every . Ask your doctor about this.] Get Prompt Medical Attention If Any Of The Following Occur: Increased wheezing or shortness of breath Need to use your inhalers more often than usual without relief Fever of 100.4F (38C) or higher, or as directed by your healthcare provider Coughing up lots of dark-colored or bloody sputum (mucus) Chest pain with each breath You do not start to improve within 24 hours Bronchitis (Adult: Abx Tx) BRONCHITIS is an infection of the air passages (bronchial tubes). It often occurs during the common cold. Symptoms include cough with mucus (phlegm) and low-grade fever. Bronchitis usually lasts 7-14 days. Mild cases can be treated with simple home remedies. More severe infection is treated with an antibiotic. Home Care: If symptoms are severe, rest at home for the first 2-3 days. When you resume activity, don't let yourself get too tired. Do not smoke. Avoid being exposed to the smoke of others. You may use acetaminophen (Tylenol) or ibuprofen (Motrin, Advil) to control fever or pain, unless another medicine was prescribed for this. [NOTE: If you have chronic liver or kidney disease or ever had a stomach ulcer or GI bleeding, talk with your doctor before using these medicines.] Your appetite may be poor, so a light diet is fine. Avoid dehydration by drinking 6-8 glasses of fluids per day (water, soft, drinks, juices, tea, soup, etc.). Extra fluids will help loosen secretions in the lungs. Hlif-lmy-jlbwrid cough medicines that containdextromethorphan(such as Robitussin DM) and decongestants (Actifed or Sudafed) may help relieve cough and congestion. [NOTE: Do not use decongestants if you have high blood pressure.] Finish all antibiotic medicine, even if you are feeling better after only a few days. Follow Up with your doctor or as directed if you dont start to feel better after three days. [NOTE: If you are age 65 or older, or if you have chronic asthma or COPD, we recommend a PNEUMOCOCCAL VACCINATION every five years and a yearly INFLUENZAVACCINATION (FLU-SHOT) every . Ask your doctor about this. If you had an X-ray, a radiologist will review it. You will be notified of any new findings that may affect your care.] Get Prompt Medical Attention if any of the following occur: Fever over 100.4F (38.0C) for more than three days Trouble breathing, wheezing or pain with breathing Coughing up blood or increased amounts of colored sputum Weakness, drowsiness, headache, facial pain, ear pain or a stiff neck Albuterol Sulfate Pressurized inhalation, suspension What is this medicine? ALBUTEROL (al BYOO ter ole) is a bronchodilator. It helps open up the airways in your lungs to make it easier to breathe. This medicine is used to treat and to prevent bronchospasm. How should I use this medicine? This medicine is for inhalation through the mouth. Follow the directions on your prescription label. Take your medicine at regular intervals. Do not use more often than directed. Make sure that you are using your inhaler correctly. Ask you doctor or health care provider if you have any questions. Talk to your molding associate regarding the use of this medicine in children. Special care may be needed. What side effects may I notice from receiving this medicine? Side effects that you should report to your doctor or health residential caregiver as soon as possible: allergic reactions like skin rash, itching or hives, swelling of the face, lips, or tongue breathing problems chest pain feeling faint or lightheaded, falls high blood pressure irregular heartbeat fever muscle cramps or weakness pain, tingling, numbness in the hands or feet vomiting Side effects that usually do not require medical attention (report to your doctor or health residential caregiver if they continue or are bothersome): cough difficulty sleeping headache nervousness or trembling stomach upset stuffy or runny nose throat irritation unusual taste What may interact with this medicine? anti-infectives like chloroquine and pentamidine caffeine cisapride diuretics medicines for colds medicines for depression or for emotional or psychotic conditions medicines for weight loss including some herbal products methadone some antibiotics like clarithromycin, erythromycin, levofloxacin, and linezolid some heart medicines steroid hormones like dexamethasone, cortisone, hydrocortisone theophylline thyroid hormones What if I miss a dose? If you miss a dose, use it as soon as you can. If it is almost time for your next dose, use only that dose. Do not use double or extra doses. Where should I keep my medicine? Keep out of the reach of children. Store at room temperature between 15 and 30 degrees C (59 and 86 degrees F). The contents are under pressure and may burst when exposed to heat or flame. Do not freeze. This medicine does not work as well if it is too cold. Throw away any unused medicine after the expiration date. Inhalers need to be thrown away after the labeled number of puffs have been used or by the expiration date; whichever comes first. Ventolin HFA should be thrown away 12 months after removing from foil pouch. Check the instructions that come with your medicine. What should I tell my health care provider before I take this medicine? They need to know if you have any of the following conditions: diabetes heart disease or irregular heartbeat high blood pressure pheochromocytoma seizures thyroid disease an unusual or allergic reaction to albuterol, levalbuterol, sulfites, other medicines, foods, dyes, or preservatives or trying to get breast-feeding What should I watch for while using this medicine? Tell your doctor or health residential caregiver if your symptoms do not improve. Do not use extra albuterol. If your asthma or bronchitis gets worse while you are using this medicine, call your doctor right away. If your mouth gets dry try chewing sugarless gum or sucking hard candy. Drink water as directed. Amoxicillin Trihydrate, Clavulanate Potassium Oral tablet What is this medicine? AMOXICILLIN; CLAVULANIC ACID (a mox i SHRUTHI in; CHANELLE black ic id) is a penicillin antibiotic. It is used to treat certain kinds of bacterial infections. It will not work for colds, flu, or other viral infections. How should I use this medicine? Take this medicine by mouth with a full glass of water. Follow the directions on the prescription label. Take at the start of a meal. Do not crush or chew. If the tablet has a score line, you may cut it in half at the score line for easier swallowing. Take your medicine at regular intervals. Do not take your medicine more often than directed. Take all of your medicine as directed even if you think you are better. Do not skip doses or stop your medicine early. Talk to your molding associate regarding the use of this medicine in children. Special care may be needed. What side effects may I notice from receiving this medicine? Side effects that you should report to your doctor or health residential caregiver as soon as possible: allergic reactions like skin rash, itching or hives, swelling of the face, lips, or tongue breathing problems dark urine fever or chills, sore throat redness, blistering, peeling or loosening of the skin, including inside the mouth seizures trouble passing urine or change in the amount of urine unusual bleeding, bruising unusually weak or tired white patches or sores in the mouth or throat Side effects that usually do not require medical attention (report to your doctor or health residential caregiver if they continue or are bothersome): diarrhea dizziness headache nausea, vomiting stomach upset vaginal or anal irritation What may interact with this medicine? allopurinol anticoagulants control pills methotrexate probenecid What if I miss a dose? If you miss a dose, take it as soon as you can. If it is almost time for your next dose, take only that dose. Do not take double or extra doses. Where should I keep my medicine? Keep out of the reach of children. Store at room temperature below 25 degrees C (77 degrees F). Keep container tightly closed. Throw away any unused medicine after the expiration date. What should I tell my health care provider before I take this medicine? They need to know if you have any of these conditions: bowel disease, like colitis kidney disease liver disease mononucleosis an unusual or allergic reaction to amoxicillin, penicillin, cephalosporin, other antibiotics, clavulanic acid, other medicines, foods, dyes, or preservatives or trying to get breast-feeding What should I watch for while using this medicine? Tell your doctor or health residential caregiver if your symptoms do not improve. Do not treat diarrhea with over the counter products. Contact your doctor if you have diarrhea that lasts more than 2 days or if it is severe and watery. If you have diabetes, you may get a false-positive result for sugar in your urine. Check with your doctor or health residential caregiver. control pills may not work properly while you are taking this medicine. Talk to your doctor about using an extra method of control. Prednisone Oral tablet What is this medicine? PREDNISONE (PRED ni sone) is a corticosteroid. It is commonly used to treat inflammation of the skin, joints, lungs, and other organs. Common conditions treated include asthma, allergies, and arthritis. It is also used for other conditions, such as blood disorders and diseases of the adrenal glands. How should I use this medicine? Take this medicine by mouth with a glass of water. Follow the directions on the prescription label. Take this medicine with food. If you are taking this medicine once a day, take it in the morning. Do not take more medicine than you are told to take. Do not suddenly stop taking your medicine because you may develop a severe reaction. Your doctor will tell you how much medicine to take. If your doctor wants you to stop the medicine, the dose may be slowly lowered over time to avoid any side effects. Talk to your molding associate regarding the use of this medicine in children. Special care may be needed. What side effects may I notice from receiving this medicine? Side effects that you should report to your doctor or health residential caregiver as soon as possible: allergic reactions like skin rash, itching or hives, swelling of the face, lips, or tongue changes in emotions or moods changes in vision depressed mood eye pain fever or chills, cough, sore throat, pain or difficulty passing urine increased thirst swelling of ankles, feet Side effects that usually do not require medical attention (report to your doctor or health residential caregiver if they continue or are bothersome): confusion, excitement, restlessness headache nausea, vomiting skin problems, acne, thin and shiny skin trouble sleeping weight gain What may interact with this medicine? Do not take this medicine with any of the following medications: metyrapone mifepristone This medicine may also interact with the following medications: aminoglutethimide amphotericin B aspirin and aspirin-like medicines barbiturates certain medicines for diabetes, like glipizide or glyburide cholestyramine cholinesterase inhibitors cyclosporine digoxin diuretics ephedrine female hormones, like estrogens and control pills isoniazid ketoconazole NSAIDS, medicines for pain and inflammation, like ibuprofen or naproxen phenytoin rifampin toxoids vaccines warfarin What if I miss a dose? If you miss a dose, take it as soon as you can. If it is almost time for your next dose, talk to your doctor or health residential caregiver. You may need to miss a dose or take an extra dose. Do not take double or extra doses without advice. Where should I keep my medicine? Keep out of the reach of children. Store at room temperature between 15 and 30 degrees C (59 and 86 degrees F). Protect from light. Keep container tightly closed. Throw away any unused medicine after the expiration date. What should I tell my health care provider before I take this medicine? They need to know if you have any of these conditions: Jacqueline's syndrome diabetes glaucoma heart disease high blood pressure infection (especially a virus infection such as chickenpox, cold sores, or herpes) kidney disease liver disease mental illness myasthenia gravis osteoporosis seizures stomach or intestine problems thyroid disease an unusual or allergic reaction to lactose, prednisone, other medicines, foods, dyes, or preservatives or trying to get breast-feeding What should I watch for while using this medicine? Visit your doctor or health residential caregiver for regular checks on your progress. If you are taking this medicine over a prolonged period, carry an identification card with your name and address, the type and dose of your medicine, and your doctor's name and address. This medicine may increase your risk of getting an infection. Tell your doctor or health residential caregiver if you are around anyone with measles or chickenpox, or if you develop sores or blisters that do not heal properly. If you are going to have surgery, tell your doctor or health residential caregiver that you have taken this medicine within the last twelve months. Ask your doctor or health residential caregiver about your diet. You may need to lower the amount of salt you eat. This medicine may affect blood sugar levels. If you have diabetes, check with your doctor or health residential caregiver before you change your diet or the dose of your diabetic medicine. You have been given the following additional information: Bronchospasm (Adult) Bronchitis, Antiobiotic Treatment (Adult) Albuterol Sulfate Pressurized inhalation, suspension Amoxicillin Trihydrate, Clavulanate Potassium Oral tablet Prednisone Oral tablet (Electronically signed by Ac Adair Dr. 04/15/2017 17:31)
--- NOTE | 2017-04-15 17:31 | ED MAR SUMMARY ---
..... Medication Administration Record [facility] [address] [place] [address] Patient: SHANTELLE MANRIQUEZ Visit ID: [id number] 62y, M Weight: 112.9 kg Height/Length: 69 in BMI: 36.8 ALLERGIES: No Known Drug Allergy Given 01:58 04/14/2017 Barrett Qureshi, ALEJANDRO Developer Designer, Stop 02:02 04/14/2017 Clarissa Valiente R.N. Medication Administered: DUONEB [NEB TX] (IPRATROPIUM-ALBUTEROL), Dose: 1 unit dose Nebulizer Neb TX. Medication Ordered: DuoNeb Neb Tx 1 unit dose (NOW). Given 02:15 04/14/2017 Clarissa aVliente R.N., Stop 02:20 04/14/2017 Clarissa Valiente R.N. Medication Administered: ALBUTEROL [NEB TX], Dose: 5 mg Nebulizer Neb TX. Medication Ordered: Albuterol Neb Tx 5 mg (once now). Given 03:00 04/14/2017 Clarissa Valiente R.N. Medication Administered: AUGMENTIN [PO] (AMOXICILLIN-POT CLAVULANATE), Dose: 875 mg Tablets PO. Medication Ordered: Augmentin PO 875 mg (NOW).
== END 2017-04-14 03:02 | disposition home or self-care (01) ==
LOC: ED SRH 01:45
DX: J20.9 Acute bronchitis, unspecified (principal); J45.909 Unspecified asthma, uncomplicated; I26.99 Other pulmonary embolism without acute cor pulmonale; F17.210 Nicotine dependence, cigarettes, uncomplicated; Z79.51 Long term (current) use of inhaled steroids
CPT/HCPCS: 90100; 95059

== ENCOUNTER 2017-05-02 14:55 | Outpatient (CLI) | payer OTHER ==
--- NOTE | 2017-05-02 19:30 | DIAGNOSTIC IMAGING REPORT ---
PROCEDURE: CT SOFT TISSUE NECK WITH CONT INDICATION: MEDIASTINAL MASS TECHNIQUE: 125 ml of Isovue 300 IV contrast was administered. Axial thin-slice CT images were acquired through the neck with coronal and sagittal reformations. If needed, angled axial CT images avoiding dental hardware were acquired. COMPARISON: None. FINDINGS: There is a multilobulated mass likely arising from, and extending caudal to the left lobe of the thyroid gland with diffuse heterogeneity. Nodules appear to be connected by thin, probably vascular soft tissue bridges. There are three discrete lobulations separate from the normal left thyroid lobe contour, and there is nodular enlargement of the isthmus. Margins of the multinodular mass are fairly smooth and there is no infiltration of the overlying strap muscles, or significant stranding in the adjacent superior mediastinal fat. The largest nodule measures approximately 5.8 x 5.1 x 3.5 cm. Nodularity of the isthmus measures approximately 3.2 x 3.4 x 2.3 cm. One of the lobulations insinuates itself between the brachial cephalic and left carotid artery origins just superior to the aortic arch. Normal left thyroid lobe is heterogeneous and the right is minimally heterogeneous. No adjacent superior mediastinal, supraclavicular, or cervical adenopathy. The other glandular structures appear symmetric with normal attenuation and enhancement. Multiple calcifications in the left tonsillar pillar but no tonsillar enlargement or significant enhancement. Parapharyngeal fat planes are normally maintained. The vasculature is patent and normal caliber bilaterally. Minor carotid bulb atherosclerosis bilaterally. There is complete opacification of the visualized right maxillary sinus, with heterogeneous soft tissue, iatrogenic formation of an antral window or destruction of the medial sinus wall, and tissue extending medial into the nasal passage. The visible portions of the sphenoid, left maxillary sinus, and mastoid cavities are normally aerated. The visible base of the brain is normal. Osseous structures are intact without periostitis or lytic lesion. Degenerative changes at the atlantodental interval. The lung apices are normally aerated. IMPRESSION: 1. A large, multilobulated, exophytic left thyroid and isthmus mass causing left tracheal and esophageal rightward shift. This is probably a benign multinodular goiter, however given its size and heterogeneity, small dysplastic or neoplastic foci are not excluded. Biopsy could be considered, however given the extent of lobulations, possibility of false negative results is raised. Surgical consult is recommended. 2. Right maxillary sinus soft tissue mass, or polyps. Clinical correlation and ENT consult is recommended. 3. No suspicious adenopathy in the neck or upper mediastinum.
== END 2017-05-02 23:00 ==
LOC: CT SRH 14:55
DX: J98.59 Other diseases of mediastinum, not elsewhere classified (principal); R93.8 Abnormal findings on diagnostic imaging of other specified body structures